=== PATIENT | female | born 1965 | race Caucasian/White ===

== ENCOUNTER 2019-11-22 01:18 | Emergency (ER) | payer OTHER, SELFPAY ==
[~2019-11-22] VITALS: Ht 157.5 cm; Wt 52.3 kg
[2019-11-22] MEDS ORDERED: CARB100 PO (02:51)
[2019-11-22] MEDS: ACETAMINOPHEN 500 MG TABLET PO ONE (04:00)
[2019-11-22 05:42] VITALS: BP 132/88
[2019-11-22] MEDS: LIDOCAINE 5% TRANSDERMAL PATCH TD ONE (05:45)
== END 2019-11-22 05:45 | disposition home or self-care (01) ==
LOC: EMS 01:19
DX: S40.011A Contusion of right shoulder, initial encounter (principal); F11.90 Opioid use, unspecified, uncomplicated; F12.90 Cannabis use, unspecified, uncomplicated; Z98.51 Tubal ligation status; Z79.899 Other long term (current) drug therapy; Y08.89XA Assault by other specified means, initial encounter; Y93.89 Activity, other specified; Y92.89 Other specified places as the place of occurrence of the external cause; Y99.8 Other external cause status